=== PATIENT | male | born 1935 | race Caucasian/White ===

== ENCOUNTER 2021-12-27 01:36 | Emergency (ER) | payer MEDICARE, SELFPAY ==
--- NOTE | ~2021-12-27 | CT_ITS ---
EXAMINATION: CT chest abdomen pelvis w con DATE: 12/27/2021 03:37 INDICATION: Fall on 12/24/2021. Low back pain. TECHNIQUE: Computed tomography (CT) of the chest, abdomen, and pelvis was performed with 100 CC Omnip aque 350 intravenous contrast. Automated exposure control and iterative reconstruction technique were employed. Exam dose: 1015.94 mGy-cm total exam DLP. COMPARISON: 10/18/2010 CT urogram 04/19/2008 CT pulmonary scan FINDINGS: CHEST CT: Normal heart size. Coronary artery calcifications. There is aortic calcification but no thoracic aort ic aneurysm or dissection. No hilar or mediastinal mass lesion or lymphadenopathy. No pericardial or pleural effusion. Elevated right diaphragm. There is mild infiltrate or atelectasis in the middle and bilateral lower l obes. Calcified right upper lobe pulmonary granuloma. No pneumothorax or pneumomediastinum. ABDOMEN/PELVIS CT: No hepatic, splenic, pancreatic, and adrenal or renal space-occupying mass lesion or laceration is no joana, with exception of probable small right renal probable cyst. Several small left renal nonobstruct ing calculi, the largest approximately 2.4 mm. No ureteral calculus or hydroureteronephrosis. There is atherosclerotic calcification of the abdominal aorta and at the origins of the celiac, splen ic, superior mesenteric and especially in the renal arteries. No abdominal aortic aneurysm. No intraperitoneal or retroperitoneal or pelvic mass lesion or adenopathy or ascites. The urinary bladder is unremarkable. Status post prostatectomy. Diverticulosis of the colon; no CT evidence of diverticulitis. No bowel obstruction or intraperitonea l free air. Fat-containing right inguinal hernia. The gallbladder is unremarkable. No bile duct or pancreatic duct dilatation. Moderately prominent burst fracture at T12 with prominent amount of air within the T12 vertebral body . Infection is not excluded. Moderately severe degenerative disc disease at L4-5, moderate degenerative disc disease at L3-4. No suspicious osteolytic or osteoblastic lesions are noted. IMPRESSION: Moderate burst fracture of T12; prominent amount of air within the T12 vertebral body; i nfection is not excluded. Consider MRI examination without and with IV contrast material if further e valuation is warranted clinically. Reviewed, dictated and finalized at [facility]. Reviewed, dictated and finalized at [facility]. IMPRESSION: Moderate burst fracture of T12; prominent amount of air within the T12 vertebral body; infection is not excluded. Consider MRI examination withou t and with IV contrast material if further evaluation is warranted clinically.
[2021-12-27 01:42] VITALS: BP 179/86; PULSE 95; RESP 17; TEMP 36.8; O2SAT 97
--- NOTE | 2021-12-27 01:42 | ECG_ITS ---
Measurements Intervals Sublimity Rate: 76 P: 33 SD: 157 QRS: 76 QRSD: 154 T: 11 QT: 417 QTc: 472 Interpretive Statements SINUS RHYTHM WITH SINUS ARRHYTHMIA RIGHT BUNDLE BRANCH BLOCK CONSIDER INFERIOR INFARCT, AGE INDETERMINATE ABNORMAL ECG NO PREVIOUS ECG AVAILABLE FOR COMPARISON Electronically Signed On 12-27-2021 6:43:07 CDT by Kimo Brooks D.O.
--- NOTE | 2021-12-27 02:08 | ED.GENADULT ---
HPI - General Adult General Chief complaint: Chest Pain Stated complaint: CP Time Seen by Provider: 12/27/21 01:45 History of Present Illness HPI narrative: Patient is a 86-year-old gentleman who presents the emergency department with chief complaint of back pain. The patient reports that he had a fall and was seen at [facility]. The patient underwent cardiac markers and plain film x-rays that showed that he may have a compression fracture back. Patient was instructed to follow-up with his primary care provider and was started on tramadol. Patient reports this evening he took a tramadol also took some ibuprofen and Tylenol and reports that he was still having discomfort. Related Data Home Medications Medication Instructions Recorded Confirmed amlodipine 5 mg tablet mg 12/27/21 lisinopril 20 mg tablet mg 12/27/21 pravastatin 20 mg tablet mg 12/27/21 tramadol 50 mg tablet mg 12/27/21 Allergies Allergy/AdvReac Type Severity Reaction Status Date / Time No Known Allergies Allergy Mild Verified 12/27/21 01:48 Review of Systems Review of Systems: A 10 system review of systems was completed on the patient and is negative except for what is stated in the HPI. Nursing and ancillary documentation was reviewed. PMFSH Comments Past medical history significant for hypertension Exam Narrative: GENERAL: Well-appearing, well-nourished, and in no acute distress. HEAD: Normocephalic, atraumatic. EYES: PERRLA and EOMI. ENT: Nares clear, no rhinorrhea or epistaxis. Mucous membranes moist. NECK: Supple. CHEST: Clear to auscultation. No respiratory distress. HEART: Regular rate and rhythm. No murmur heard. Normal peripheral pulses. ABDOMEN: Soft, nontender, nondistended, normal active bowel sounds. EXTREMITIES: Normal range of motion. No edema. SKIN: Warm, dry, no rash. NEURO: No focal deficits. Alert and oriented x3. PSYCH: Normal mood and affect. Course Vital Signs Vital signs: Vital Signs Temperature 36.8 C 12/27/21 01:42 Pulse Rate 95 12/27/21 01:42 Respiratory Rate 17 12/27/21 01:42 Blood Pressure 179/86 H 12/27/21 01:42 Pulse Oximetry 97 12/27/21 01:42 Oxygen Delivery Room Air 12/27/21 01:42 Temperature 36.8 C 12/27/21 01:42 Pulse Rate 82 12/27/21 03:17 Respiratory Rate 17 12/27/21 03:17 Blood Pressure 175/80 H 12/27/21 03:17 Pulse Oximetry 96 12/27/21 03:17 Oxygen Delivery Room Air 12/27/21 01:42 Medical Decision Making Vital Signs Vital Signs: Vital Signs Temperature 36.8 C 12/27/21 01:42 Pulse Rate 95 12/27/21 01:42 Respiratory Rate 17 12/27/21 01:42 Blood Pressure 179/86 H 12/27/21 01:42 Pulse Oximetry 97 12/27/21 01:42 Oxygen Delivery Room Air 12/27/21 01:42 Temperature 36.8 C 12/27/21 01:42 Pulse Rate 82 12/27/21 03:17 Respiratory Rate 17 12/27/21 03:17 Blood Pressure 175/80 H 12/27/21 03:17 Pulse Oximetry 96 12/27/21 03:17 Oxygen Delivery Room Air 12/27/21 01:42 Lab Data Result diagrams: 12/27/21 02:12 12/27/21 02:12 Labs: Lab Results 12/27/21 12/27/21 12/27/21 Range/Units 02:12 02:12 02:12 WBC 9.4 (4.5-10.0) K/mm3 RBC 4.86 (4.6-6.20) M/mm3 Hgb 15.4 (14.0-18.0) g/dL Hct 45.6 (42.0-52.0) % MCV 93.8 (80-100) fl MCH 31.7 (26-34) pg MCHC 33.8 (32-36) g/dl RDW 13.2 (11.5-14.5) % Plt Count 177 (150-375) k/mm3 MPV 9.2 (7.4-10.4) fl Immature Gran % (Auto) 0.6 H (0-0.5) % Neut % (Auto) 62.3 (45.5-73.1) % Lymph % (Auto) 23.8 (18.3-44.2) % [place] % (Auto) 10.3 H (2.6-8.5) % Eos % (Auto) 2.5 (0-4.4) % Baso % (Auto) 0.5 (0.2-1.2) % Lymph # (Auto) 2.23 (0.9-3.2) K/mm3 [place] # (Auto) 1.0 H (0.1-0.6) K/mm3 Eos # (Auto) 0.2 (0-0.3) K/mm3 Baso # (Auto) 0.1 (0.0-0.1) K/mm3 Abs Immat Gran (auto) 0.06 H (0.00-0.031) K/mm3 Absolute Neuts (auto) 5.8 (1.3-6.7
--- NOTE | 2021-12-27 02:15 | PC.NURSE ---
Patient declined pain medication and valeria at this time, he states my pain is better right now so I will be okay without that right now.
[2021-12-27 02:18] LABS: Basophils Absolute Auto 0.1 K/mm3 (0.0-0.1); Basophils Percent Auto 0.5 % (0.2-1.2); Eosinophils Absolute Auto 0.2 K/mm3 (0-0.3); Eosinophils Percent Auto 2.5 % (0-4.4); Hematocrit 45.6 % (42.0-52.0); Hemoglobin 15.4 g/dL (14.0-18.0); Immature Granulocyte Absolute 0.06 K/mm3 (0.00-0.031); Immature Granulocyte Percent A 0.6 % (0-0.5); Lymphocytes Absolute Auto 2.23 K/mm3 (0.9-3.2); Lymphocytes Percent Auto 23.8 % (18.3-44.2); Mean Corpuscular HGB Conc 33.8 g/dl (32-36); Mean Corpuscular Hemoglobin 31.7 pg (26-34); Mean Corpuscular Volume 93.8 fl (80-100); Mean Platelet Volume 9.2 fl (7.4-10.4); Monocytes Percent Auto 10.3 % (2.6-8.5); Neutrophils Absolute Auto 5.8 K/mm3 (1.3-6.7); Neutrophils Percent Auto 62.3 % (45.5-73.1); Platelet Count Result 177 k/mm3 (150-375); Red Blood Count 4.86 M/mm3 (4.6-6.20); Red Cell Distribution Width 13.2 % (11.5-14.5); White Blood Count 9.4 K/mm3 (4.5-10.0)
[2021-12-27 02:28] LABS: Appearance Urine Clear (Clear); Bilirubin Urine Negative (Negative); Blood Urine 1+ (Negative); Color Urine Yellow (Yellow); Glucose Urine UA Negative (Negative); Ketones Urine Trace mg/dL (Negative); Leukocyte Esterase Ur Negative LEU/UL (Negative); Nitrate Urine Negative (Negative); Protein Urine Negative (Negative); Specific Grav Ur 1.015 (1.001-1.035); Urobilinogen Urine 0.2 mg/dL (<2.0)
[2021-12-27 02:29] LABS: Alanine Aminotransferase 20 U/L (6-50); Albumin Level 3.9 g/dL (3.5-5.1); Alkaline Phosphatase 73 U/L (38-126); Anion Gap 5 mmol/L (8-16); Aspartate Amino Transferase 26 U/L (17-59); Bilirubin,Total 0.8 mg/dL (0.2-1.3); Blood Urea Nitrogen 20 mg/dL (9-20); Calcium 8.8 mg/dL (8.4-10.2); Carbon Dioxide 25 mmol/L (22-30); Chloride 104 mmol/L (98-107); Estimated CRCL calculation 43 ml/min; Estimated Glomerular Filt Rate > 60; Glucose 118 mg/dL (65-110); Lipase 32 U/L (23-300); Magnesium 2.5 mg/dL (1.6-2.3); Potassium 4.1 mmol/L (3.4-5.0); Prothrombin Time 12.9 Seconds (11.1-14.7); Sodium 134 mmol/L (137-145)
[2021-12-27 02:35] LABS: Add Urine Microscopic? YES; Bacteria Urine Trace /hpf; WBC Urine 0-3 /hpf
[2021-12-27 02:41] LABS: Troponin I < 0.012 ng/mL (0.000-0.034)
[2021-12-27 03:17] VITALS: BP 175/80; PULSE 82; RESP 17; O2SAT 96
--- NOTE | 2021-12-27 03:21 | PC.NURSE ---
Patient taken to CT via stretcher at this time.
[2021-12-27 05:24] LABS: Troponin I < 0.012 ng/mL (0.000-0.034)
[2021-12-27 05:47] VITALS: PULSE 84
== END 2021-12-27 05:50 | disposition home or self-care (01) ==
PROVIDERS: Emergency Provider Emergency Medicine; PCP Hospitalist
DX: S22.080D Wedge compression fracture of T11-T12 vertebra, subsequent encounter for fracture with routine healing (principal); R07.89 Other chest pain; I10 Essential (primary) hypertension; I45.10 Unspecified right bundle-branch block; R94.31 Abnormal electrocardiogram [ECG] [EKG]; W19.XXXD Unspecified fall, subsequent encounter
CPT/HCPCS: 36415; 71260; 74177; 80053; 81001; 83605; 83690; 83735; 84484; 85025; 85610; 85730; 93005; 99284; Q9967